=== PATIENT | female | born 1990 | race African-American/Black ===

== ENCOUNTER 2019-04-02 00:56 | Emergency (ER) | payer SELFPAY ==
[~2019-04-02] VITALS: Ht 157.5 cm; Wt 75.0 kg
[2019-04-02 01:40] VITALS: BP 117/81
[2019-04-02] MEDS ORDERED: KETOROLAC 60MG/2ML VIAL IM ONE (01:45)
== END 2019-04-02 02:41 | disposition home or self-care (01) ==
LOC: ER 00:56
DX: F12.10 Cannabis abuse, uncomplicated (principal); R51 Headache
CPT/HCPCS: 81025; 96372; 99283; J1885

== ENCOUNTER 2019-06-25 19:01 | Inpatient (IN) | payer SELFPAY ==
[~2019-06-25] VITALS: Ht 160 cm; Wt 81.6 kg
[2019-06-26 00:30] LABS: BASOPHILS % 0.8 % (0.0-2.0); EOSINOPHILS % 1.2 % (0.0-5.0); HEMATOCRIT. 39.4 % (36.0-48.0); LYMPHOCYTES % 31.5 % (20.0-50.0); MEAN CORPUSCULAR HEMOGLOBIN 27.2 pg (28.0-32.0); MEAN CORPUSCULAR VOLUME 82.4 fL (81.0-99.0); MEAN PLATELET VOLUME 8.2 fl (7.4-10.4); NEUTROPHILS % 60.5 % (40.0-76.0); PLATELET 350 x1000/uL (130-400); RED BLOOD CELL COUNT 4.79 mill/uL (4.2-5.4); RED CELL DISTRIBUTION WIDTH 13.3 % (11.6-14.6)
[2019-06-26 00:40] LABS: CHLORIDE 108 mEq/L (98-107)
[2019-06-26] MEDS ORDERED: ASPIRIN 81MG TABLET PO ONE (01:30)
[2019-06-26 05:22] VITALS: BP 114/81
[2019-06-26 06:37] VITALS: BP 114/81
[2019-06-26] MEDS ORDERED: NA PHOS,M-B/NA PHOS,DI-BA ENEMA 118ML PR PRN (06:45)
[2019-06-26] MEDS ORDERED: CLONIDINE 0.1MG TABLET PO PRN (06:45)
[2019-06-26] MEDS ORDERED: ONDANSETRON HCL 4MG/2ML INJ IV PRN (06:45)
[2019-06-26] MEDS ORDERED: DIPHENHYDRAMINE 50MG/ML VIAL IV PRN (06:45)
[2019-06-26] MEDS ORDERED: IPRATROPIUM/ALBUTEROL 0.5-3(2.5)MG/3ML NEB HHN PRN (06:45)
[2019-06-26] MEDS ORDERED: MAGNESIUM/ALUMINUM HYDROXIDE/SIMETHICONE 30ML UDC PO PRN (06:45)
[2019-06-26] MEDS ORDERED: HYDRALAZINE 20MG/ML VIAL IV PRN (06:45)
[2019-06-26] MEDS ORDERED: DEXTROSE 50% WATER 50ML SYRINGE IV PRN (06:45)
[2019-06-26] MEDS ORDERED: GUAIFENESIN 200MG/10ML SUGAR FREE UDC PO PRN (06:45)
[2019-06-26 08:00] VITALS: BP 117/82
[2019-06-26] MEDS ORDERED: DOCUSATE SODIUM 100MG CAPSULE PO PRN (09:00)
[2019-06-26] MEDS: HYDROCODONE/ACETAMINOPHEN 10/325MG TABLET PO PRN (10:45)
[2019-06-26 12:00] VITALS: BP 118/76
[2019-06-26] MEDS ORDERED: INFLUENZA VIRUS VACCINE(AFLURIA) 0.5ML SYR IM ONE (12:00)
[2019-06-26] MEDS: LORAZEPAM 2MG/ML CPJ IV PRN ×2 (15:06→21:30)
[2019-06-26] MEDS: SODIUM CHLORIDE 0.9% INJ 3ML FLUSH IVF SCH ×2 (15:07→21:20)
[2019-06-26 16:00] VITALS: BP 124/79
[2019-06-26 16:22] LABS: CREATINE KINASE MB FRACTION 1.1 ng/mL (0.5-3.6)
[2019-06-26] MEDS: ACETAMINOPHEN 325MG TABLET PO PRN ×2 (18:23→21:31)
[2019-06-26] MEDS ORDERED: ATORVASTATIN CALCIUM 20MG TABLET PO SCH (21:00)
[2019-06-27] VITALS: BP 116/79
[2019-06-27 01:23] LABS: CREATINE KINASE 74 IU/L (26-192)
[2019-06-27 01:24] LABS: CREATINE KINASE MB FRACTION < 1.0 ng/mL (0.5-3.6)
[2019-06-27 04:00] VITALS: BP 116/82
[2019-06-27] MEDS: SODIUM CHLORIDE 0.9% INJ 3ML FLUSH IVF SCH ×2 (06:38→12:24)
[2019-06-27 08:00] VITALS: BP 112/70
[2019-06-27 08:45] LABS: BASOPHILS % 1.1 % (0.0-2.0); EOSINOPHILS % 2.3 % (0.0-5.0); HEMATOCRIT. 40.7 % (36.0-48.0); HEMOGLOBIN. 13.1 g/dL (12.0-16.0); LYMPHOCYTES % 37.6 % (20.0-50.0); MEAN CORPUSCULAR HEMOGLOBIN 27.1 pg (28.0-32.0); MEAN CORPUSCULAR VOLUME 84.3 fL (81.0-99.0); MEAN PLATELET VOLUME 8.4 fl (7.4-10.4); MONOCYTES % 9.2 % (2.0-8.0); NEUTROPHILS % 49.8 % (40.0-76.0); PLATELET 293 x1000/uL (130-400); RED BLOOD CELL COUNT 4.83 mill/uL (4.2-5.4); RED CELL DISTRIBUTION WIDTH 13.6 % (11.6-14.6)
[2019-06-27] MEDS ORDERED: ASPIRIN 81MG TABLET PO SCH (09:00)
[2019-06-27] MEDS: HYDROCODONE/ACETAMINOPHEN 10/325MG TABLET PO PRN (09:15)
[2019-06-27 11:29] LABS: CHLORIDE 107 mEq/L (98-107)
[2019-06-27 11:36] LABS: LDL CHOLESTEROL 114 mg/dL (5-100)
[2019-06-27 11:37] LABS: HDL CHOLESTEROL 48 mg/dL (40-59)
[2019-06-27 11:39] LABS: T4 FREE 0.91 ng/dL (0.76-1.46)
[2019-06-27 13:11] VITALS: BP 112/70
== END 2019-06-27 15:13 | disposition home or self-care (01) | DRG 203 ==
LOC: ER 19:01 → 7WST 06-26 02:59 → EDBEDREQ 06-26 03:00 → EDBEDREQTM 06-26 03:00 → ENRESERV 06-26 03:46
PROVIDERS: ADMIT Internal Medicine; ATTEND Internal Medicine
DX: R07.89 Other chest pain (principal); R79.89 Other specified abnormal findings of blood chemistry
CPT/HCPCS: 36415; 71045; 80061; 82550; 82553; 84439; 84443; 84484; 85379; 99285; J2060

== ENCOUNTER 2019-06-27 22:08 | Inpatient (IN) | payer SELFPAY ==
[~2019-06-27] VITALS: Ht 160 cm; Wt 76.7 kg
[2019-06-28] MEDS ORDERED: VISCOUS LIDOCAINE 2% 15 ML UDC PO ONE (00:15)
[2019-06-28] MEDS ORDERED: MAGNESIUM/ALUMINUM HYDROXIDE/SIMETHICONE 30ML UDC PO ONE (00:15)
[2019-06-28 00:57] LABS: BASOPHILS % 0.8 % (0.0-2.0); EOSINOPHILS % 1.4 % (0.0-5.0); HEMATOCRIT. 38.4 % (36.0-48.0); HEMOGLOBIN. 12.6 g/dL (12.0-16.0); LYMPHOCYTES % 31.2 % (20.0-50.0); MEAN CORPUSCULAR HEMOGLOBIN 26.9 pg (28.0-32.0); MEAN CORPUSCULAR VOLUME 81.9 fL (81.0-99.0); MEAN PLATELET VOLUME 8.1 fl (7.4-10.4); MONOCYTES % 8.1 % (2.0-8.0); NEUTROPHILS % 58.5 % (40.0-76.0); PLATELET 332 x1000/uL (130-400); RED BLOOD CELL COUNT 4.69 mill/uL (4.2-5.4); RED CELL DISTRIBUTION WIDTH 13.5 % (11.6-14.6)
[2019-06-28 01:02] LABS: CHLORIDE 105 mEq/L (98-107)
[2019-06-28] MEDS ORDERED: ASPIRIN 81MG TABLET PO ONE (02:00)
[2019-06-28] MEDS ORDERED: CLONIDINE 0.1MG TABLET PO PRN (03:45)
[2019-06-28] MEDS ORDERED: MAGNESIUM/ALUMINUM HYDROXIDE/SIMETHICONE 30ML UDC PO PRN (03:45)
[2019-06-28] MEDS ORDERED: IPRATROPIUM/ALBUTEROL 0.5-3(2.5)MG/3ML NEB NEB PRN (03:45)
[2019-06-28] MEDS ORDERED: ONDANSETRON HCL 4MG/2ML INJ IV PRN (03:45)
[2019-06-28] MEDS ORDERED: PANTOPRAZOLE SODIUM 40 MG/VIAL IV SCH (04:00)
[2019-06-28] MEDS: ACETAMINOPHEN 325MG TABLET PO PRN ×2 (04:42→04:43)
[2019-06-28 05:00] VITALS: BP 124/78
[2019-06-28 08:00] VITALS: BP 115/76
[2019-06-28] MEDS ORDERED: ASPIRIN 81MG EC TABLET PO SCH (09:00)
[2019-06-28 14:40] VITALS: BP 115/76
[2019-06-28] MEDS ORDERED: INFLUENZA VIRUS VACCINE(AFLURIA) 0.5ML SYR IM ONE (15:15)
== END 2019-06-28 16:20 | disposition home or self-care (01) | DRG 243 ==
LOC: ER 22:08 → 5WST 06-28 02:58 → ENRESERV 06-28 03:59
PROVIDERS: ADMIT Hospitalist; ATTEND Hospitalist
DX: K21.9 Gastro-esophageal reflux disease without esophagitis (principal); E78.00 Pure hypercholesterolemia, unspecified; E78.5 Hyperlipidemia, unspecified; I10 Essential (primary) hypertension; Z79.82 Long term (current) use of aspirin; Z79.899 Other long term (current) drug therapy
CPT/HCPCS: 36415; 71045; 83880; 84484; 90686; 93005; 99285; C9113

== ENCOUNTER 2019-07-25 23:04 | Emergency (ER) | payer SELFPAY ==
[~2019-07-25] VITALS: Ht 157.5 cm; Wt 82.0 kg
[2019-07-26] MEDS ORDERED: KETOROLAC 30MG/ML VIAL IM ONE (01:30)
[2019-07-26 02:04] VITALS: BP 132/68
== END 2019-07-26 02:08 | disposition home or self-care (01) ==
LOC: ER 23:04
DX: R07.89 Other chest pain (principal); M31.1 Thrombotic microangiopathy; R05 Cough; R00.2 Palpitations
CPT/HCPCS: 71045; 93005; 96372; 99283; J1885

== ENCOUNTER 2020-02-17 19:42 | Emergency (ER) | payer SELFPAY ==
[~2020-02-17] VITALS: Ht 157.5 cm; Wt 82.0 kg
[2020-02-17 21:18] VITALS: BP 136/81
== END 2020-02-17 21:24 | disposition home or self-care (01) ==
LOC: ER 19:42
DX: B02.9 Zoster without complications (principal)
CPT/HCPCS: 99283

== ENCOUNTER 2021-08-25 08:19 | Emergency (ER) | payer SELFPAY ==
[~2021-08-25] VITALS: Ht 157.5 cm; Wt 82.0 kg
[2021-08-25 08:31] VITALS: BP 130/91
[2021-08-25] MEDS ORDERED: TC1U15 TP (08:36)
[2021-08-25] MEDS ORDERED: IBUP-2029 MT (08:36)
[2021-08-25] MEDS ORDERED: VALA10002 MT (08:36)
[2021-08-25] MEDS ORDERED: HYDR-4001 MT (08:36)
== END 2021-08-25 08:55 | disposition home or self-care (01) ==
LOC: ER 08:19
DX: B02.9 Zoster without complications (principal); Z79.899 Other long term (current) drug therapy
CPT/HCPCS: 99283

== ENCOUNTER 2022-04-10 09:29 | Emergency (ER) | payer SELFPAY ==
[~2022-04-10] VITALS: Ht 157.5 cm; Wt 87.0 kg
[~2022-04-10 09:29] MED LIST: HYDR-4001 MT; IBUP-2029 MT; TC1U15 TP; VALA10002 MT
[2022-04-10 09:37] VITALS: BP 140/99
[2022-04-10] MEDS ORDERED: NAPR-1176 MT (10:59)
[2022-04-10] MEDS ORDERED: CYCL5TAB MT (10:59)
== END 2022-04-10 11:21 | disposition home or self-care (01) ==
LOC: ER 09:29
DX: M79.621 Pain in right upper arm (principal); X50.0XXA Overexertion from strenuous movement or load, initial encounter; Y93.89 Activity, other specified; Y92.128 Other place in nursing home as the place of occurrence of the external cause; Y99.8 Other external cause status
CPT/HCPCS: 99281

== ENCOUNTER 2022-09-28 09:37 | Emergency (ER) | payer OTHER ==
[~2022-09-28] VITALS: Ht 157.5 cm; Wt 79.0 kg
[~2022-09-28 09:37] MED LIST changes: +CYCL5TAB MT; +NAPR-1176 MT
[2022-09-28 09:45] VITALS: BP 136/91
[2022-09-28] MEDS ORDERED: IBUP-2030 MT (11:25)
[2022-09-28] MEDS ORDERED: HYDR-4001 MT (11:25)
[2022-09-28] MEDS ORDERED: TC1U15 TP (11:25)
[2022-09-28] MEDS ORDERED: VALA10002 MT (11:25)
== END 2022-09-28 11:59 | disposition home or self-care (01) ==
LOC: ER 09:37
DX: R21 Rash and other nonspecific skin eruption (principal); Z59.00 Homelessness unspecified; Z79.899 Other long term (current) drug therapy
CPT/HCPCS: 99281; 99283

== ENCOUNTER 2025-04-02 09:48 | Emergency (ER) | payer OTHER ==
[~2025-04-02] VITALS: Ht 160 cm; Wt 81.6 kg
[~2025-04-02 09:48] MED LIST changes: -CYCL5TAB MT; +CYCL5TAB3 MT; +IBUP-2030 MT
[2025-04-02 10:13] VITALS: O2SAT 99
[2025-04-02] MEDS ORDERED: TOPUD MT (11:18)
[2025-04-02] MEDS ORDERED: IBUP-2028 MT (11:18)
[2025-04-02] MEDS: ACETAMINOPHEN 325MG TABLET PO ONE (11:21)
[2025-04-02] MEDS: KETOROLAC 30MG/ML VIAL IM ONE (11:21)
[2025-04-02 11:36] VITALS: BP 143/94; PULSE 68; RESP 15; TEMP 36.7; O2SAT 99
== END 2025-04-02 11:37 | disposition home or self-care (01) ==
LOC: ER 09:48
DX: S60.012A Contusion of left thumb without damage to nail, initial encounter (principal); Z79.899 Other long term (current) drug therapy; X58.XXXA Exposure to other specified factors, initial encounter; Y93.89 Activity, other specified; Y92.89 Other specified places as the place of occurrence of the external cause; Y99.8 Other external cause status
CPT/HCPCS: 99283; 81025; 73130; 96372; J1885

== ENCOUNTER 2025-05-20 20:24 | Emergency (ER) | payer OTHER ==
[~2025-05-20] VITALS: Ht 157.5 cm; Wt 82.0 kg
[~2025-05-20 20:24] MED LIST changes: +IBUP-1455 MT; +IBUP-2028 MT; -IBUP-2029 MT; +TOPUD MT
[2025-05-20 20:41] VITALS: O2SAT 99
[2025-05-20 21:24] VITALS: BP 141/96; PULSE 89; RESP 16; TEMP 36.6; O2SAT 99
[2025-05-20] MEDS ORDERED: VALA100044 MT (21:43)
[2025-05-20] MEDS ORDERED: NAPR-1176 MT (21:43)
== END 2025-05-20 21:54 | disposition home or self-care (01) ==
LOC: ER 20:24
DX: B02.9 Zoster without complications (principal); Z79.1 Long term (current) use of non-steroidal anti-inflammatories (NSAID); Z79.624 Long term (current) use of inhibitors of nucleotide synthesis
CPT/HCPCS: 99283